=== PATIENT | male | born 1950 | race Caucasian/White ===

== ENCOUNTER → 2018-09-02 | Outpatient (REF) ==
[2018-09-02 16:08] LABS: PSA-TOTAL 1.07 ng/mL (0-4)
[2018-09-02 16:41] LABS: THYROID STIMULATING HORMONE 2.15 uIU/mL (0.465-4.680)
== END ==
LOC: ZLAB.WCH 15:06
PROVIDERS: Physician Assistant
DX: Z01.89 Encounter for other specified special examinations (principal)
CPT/HCPCS: G0103

== ENCOUNTER → 2018-10-14 | Outpatient (REF) ==
[2018-10-14 16:53] LABS: PSA-TOTAL 1.05 ng/mL (0-4)
[2018-10-14 17:13] LABS: THYROID STIMULATING HORMONE 2.97 uIU/mL (0.465-4.680)
== END ==
LOC: ZLAB.WCH 15:59
PROVIDERS: Internal Medicine Cardiovascular Disease
DX: Z01.89 Encounter for other specified special examinations (principal)
CPT/HCPCS: G0103

== ENCOUNTER 2023-07-15 11:30 | Day surgery (SDC) | payer MEDICARE ==
[~2023-07-15] VITALS: Ht 180.3 cm; Wt 80.9 kg
[2023-07-15 13:15] VITALS: BP 149/96; PULSE 70; TEMP 97.2
[2023-07-15] MEDS ORDERED: PROGRAF 0.5MG0.5 MG PO (13:54)
[2023-07-15] MEDS ORDERED: GLUCOPHAGE500 MG/TAB PO (13:57)
[2023-07-15] MEDS ORDERED: TRULICITY1.5 MG/0.5 SQ (13:58)
[2023-07-15] MEDS ORDERED: RESTORIL30 MG (13:58)
[2023-07-15] MEDS ORDERED: LIPITOR 80MG80 MG PO (13:58)
[2023-07-15] MEDS ORDERED: JARDIANCE25 (13:59)
[2023-07-15] MEDS ORDERED: THE MEDICINE S200 M2 PO (14:00)
[2023-07-15] MEDS ORDERED: CENTRUM SILVER1 CTB PO (14:01)
[2023-07-15] MEDS ORDERED: MASON NATURAL2000 IU PO (14:01)
[2023-07-15] MEDS ORDERED: B-121000 MCG PO (14:02)
[2023-07-15] MEDS ORDERED: CITRACAL-D3 ER1 EACH PO (14:02)
[2023-07-15 18:40] VITALS: BP 95/64; PULSE 73; TEMP 97
[2023-07-15] MEDS ORDERED: NORCO 325 MG-51 TAB PO (18:46)
[2023-07-15] MEDS ORDERED: CEPHALEXIN500 M1 PO (18:46)
[2023-07-15 18:57] VITALS: BP 109/66; PULSE 69
--- NOTE | 2023-07-15 19:39 | NUR ---
1839-PATIENT ARRIVED TO [facility] VIA CART, ACCOMPANIED BY OR STAFF. REPORT OBTAINED FROM VINNY BENSON AND WEN GONZALEZ. PATIENT DROWSY ON ARRIVAL. VITAL SIGNS TAKEN, VSS. PATIENT'S FAMILY BROUGHT TO BEDSIDE. PATIENT DENIES PAIN OR NAUSEA. ABLE TO MOVE FINGERS ON LUE. DRESSING CDI. [id number]-VSS. PO INTAKE PROVIDED TO PATIENT, DENIES FURTHER NEED OR COMPLAINTS AT THIS TIME. DR. ARORA PRESENT AT BEDSIDE TO DISCUSS PROCEDURE. 1909-DISCHARGE INSTRUCTIONS REVIEWED WITH PT AND FAMILY, QUESTIONS INVITED. IV CATHETER DISCONTINUED, CATHETER TIP INTACT. PRESSURE BANDAGE APPLIED. PATIENT'S SPOUSE ASSIT WITH DRESSING INTO HOME CLOTHING 1932-PATIENT DISCHARGED HOME TO [facility] VIA WHEELCHAIR, ACCOMPANIED BY FAMILY. ALL BELONGINGS AND DC PAPERWORK SENT WITH PT.
== END 2023-07-15 19:33 | disposition home or self-care (01) ==
LOC: SDCO 11:30
DX: M19.042 Primary osteoarthritis, left hand (principal); M18.12 Unilateral primary osteoarthritis of first carpometacarpal joint, left hand; M65.342 Trigger finger, left ring finger; Z94.1 Heart transplant status; Z95.0 Presence of cardiac pacemaker; Z95.5 Presence of coronary angioplasty implant and graft; Z95.1 Presence of aortocoronary bypass graft; E11.9 Type 2 diabetes mellitus without complications; Z79.85 Long-term (current) use of injectable non-insulin antidiabetic drugs; Z79.84 Long term (current) use of oral hypoglycemic drugs
CPT/HCPCS: J0690; J1100; J2250; J2405; J2704; J2795; J3010; J7120